=== PATIENT | male | born 1955 | race Caucasian/White ===

== ENCOUNTER 2020-10-02 16:39 | Inpatient (IN) | payer OTHER ==
[~2020-10-02] VITALS: Ht 177.8 cm; Wt 83.9 kg
[2020-10-02] MEDS ORDERED: NACL 0.9% 1,000 ML IV SCH (16:50)
[2020-10-02] MEDS ORDERED: cefTRIAXone 1,000 MG in DEXT 5% MINI-BAG PLUS 50 ML IV ONE (16:50)
[2020-10-02 16:52] VITALS: BP 86/64
[2020-10-02] MEDS ORDERED: cefTRIAXone 1,000 MG VIAL ONE (17:04)
[2020-10-02 17:29] LABS: BASOPHILS % (AUTO) 0.2 % (0.0-2.0); EOSINOPHILS # (AUTO) 0.1 K/uL (0-0.4); EOSINOPHILS % (AUTO) 0.5 % (0.0-4.0); HEMATOCRIT 28.6 % (36-52); HEMOGLOBIN 9.3 g/dL (12.0-18.0); LYMPHOCYTES # (AUTO) 1.9 K/uL (2.0-11.5); LYMPHOCYTES % (AUTO) 12.8 % (20.5-51.1); MEAN CORPUSCULAR HEMOGLOBIN 30 pg (27-31); MEAN CORPUSCULAR HGB CONC 32 g/dL (33-37); MEAN CORPUSCULAR VOLUME 92.9 fL (80-94); MONOCYTES # (AUTO) 2.8 K/uL (0.8-1.0); MONOCYTES % (AUTO) 19.2 % (1.7-9.3); NEUTROPHILS # (AUTO) 9.9 K/uL (1.8-7.7); NEUTROPHILS % (AUTO) 67.3 % (42.2-75.2); PLATELET COUNT (AUTO) 325 K/uL (140-450); RED BLOOD CELL COUNT(AUTO) 3.08 MIL/uL (4.20-6.10); RED CELL DISTRIBUTION WIDTH 17.2 % (11.6-13.7); WHITE BLOOD COUNT (AUTO) 14.7 K/uL (4.8-10.8)
[2020-10-02 17:45] LABS: ALBUMIN 2.4 g/dL (3.4-5.0); ANION GAP 10.8 (8-16); CREATININE 1.8 mg/dL (0.6-1.3); TOTAL BILIRUBIN 0.6 mg/dL (0.0-1.0)
[2020-10-02 17:49] LABS: POTASSIUM 2.8 mmol/L (3.5-5.1)
[2020-10-02] MEDS ORDERED: POTASSIUM CHLORIDE 10 MEQ TABER PO ONE (17:55)
[2020-10-02] MEDS ORDERED: POTA10TE30 PO (18:04)
[2020-10-02] MEDS ORDERED: CARV12.52 PO (18:04)
[2020-10-02] MEDS ORDERED: AMLO10TA89 PO (18:04)
[2020-10-02] MEDS ORDERED: LOSA100T1 PO (18:04)
[2020-10-02] MEDS ORDERED: ATOR40TA40 PO (18:04)
[2020-10-02] MEDS ORDERED: MORPHINE SULFATE 2 MG/ML SYR IVP PRN (18:15)
[2020-10-02] MEDS ORDERED: LORazepam 2 MG/ML VIAL IM/IVP PRN (18:15)
[2020-10-02] MEDS ORDERED: DOCUSATE SODIUM 100 MG GELCAP PO PRN (18:15)
[2020-10-02] MEDS ORDERED: ZOLPIDEM 5 MG TAB PO PRN (18:15)
[2020-10-02] MEDS ORDERED: ACETAMINOPHEN 325 MG TAB PO PRN (18:15)
[2020-10-02] MEDS ORDERED: HYDROcodone/APAP 5/325 MG 1 TAB TAB PO PRN (18:15)
[2020-10-02] MEDS ORDERED: ONDANSETRON 4 MG/2 ML VIAL IVP PRN (18:15)
[2020-10-02 18:53] LABS: CHOL/HDL RATIO 4.3 (1-4.5); FREE T4 (FREE THYROXINE) 1.3 ng/dL (0.76-1.46); MAGNESIUM 1.7 mg/dL (1.8-2.4); PHOSPHORUS 3.1 mg/dL (2.5-4.9); THYROID STIMULATING HORMONE 2.81 uIU/mL (0.34-3.74)
[2020-10-02] MEDS: NACL 0.9% 1,000 ML IV SCH (19:25)
[2020-10-02 20:00] VITALS: BP 108/85
[2020-10-02 20:25] LABS: ANION GAP 9.6 (8-16); CARBON DIOXIDE 29.1 mmol/L (21-32); CREATININE 1.4 mg/dL (0.6-1.3); POTASSIUM 3.7 mmol/L (3.5-5.1)
[2020-10-03] VITALS (8 sets, daily range): BP systolic 105–132; BP diastolic 63–90
[2020-10-03] MEDS ORDERED: PIPERACILLIN/TAZOBACTAM 3.375 GM VIAL IV ONE ×2 (01:15→06:41)
[2020-10-03] MEDS: PIPERACILLIN/TAZOBACTAM 3.375 GM in DEXTROSE 5% 50 ML IV SCH ×4 (01:26→17:06)
[2020-10-03 04:41] LABS: APPEARANCE,URINE CLEAR (CLEAR); BILIRUBIN,URINE NEGATIVE (NEGATIVE); BLOOD, URINE NEGATIVE (NEGATIVE); COLOR,URINE YELLOW (YELLOW); LEUKOCYTE ESTERASE ,URINE NEGATIVE (NEGATIVE); NITRITE, URINE NEGATIVE (NEGATIVE); UGLUCOSE NEGATIVE (NEGATIVE)
[2020-10-03 05:00] LABS: BARBITURATE, URINE NEGATIVE ng/ml (NEG <=200); BENZODIAZEPINE, URINE NEGATIVE ng/mL (NEG <=200); CANNABINOID, URINE NEGATIVE ng/mL (NEG <=50); COCAINE, URINE NEGATIVE ng/mL (NEG <=300); OPIATE, URINE NEGATIVE ng/mL (NEG <=2000); PHENCYCLIDINE SCREEN,URINE NEGATIVE ng/mL (NEG <=25)
[2020-10-03 05:00] LABS: BASOPHILS % (AUTO) 0.2 % (0.0-2.0); EOSINOPHILS # (AUTO) 0.1 K/uL (0-0.4); EOSINOPHILS % (AUTO) 0.7 % (0.0-4.0); HEMATOCRIT 26.6 % (36-52); HEMOGLOBIN 8.8 g/dL (12.0-18.0); LYMPHOCYTES # (AUTO) 1.8 K/uL (2.0-11.5); LYMPHOCYTES % (AUTO) 11.7 % (20.5-51.1); MEAN CORPUSCULAR HEMOGLOBIN 30 pg (27-31); MEAN CORPUSCULAR HGB CONC 33 g/dL (33-37); MEAN CORPUSCULAR VOLUME 91.7 fL (80-94); MONOCYTES # (AUTO) 1.9 K/uL (0.8-1.0); MONOCYTES % (AUTO) 12.6 % (1.7-9.3); NEUTROPHILS # (AUTO) 11.6 K/uL (1.8-7.7); NEUTROPHILS % (AUTO) 74.8 % (42.2-75.2); PLATELET COUNT (AUTO) 302 K/uL (140-450); RED BLOOD CELL COUNT(AUTO) 2.91 MIL/uL (4.20-6.10); RED CELL DISTRIBUTION WIDTH 17.4 % (11.6-13.7); WHITE BLOOD COUNT (AUTO) 15.4 K/uL (4.8-10.8)
[2020-10-03 05:13] LABS: MAGNESIUM 1.6 mg/dL (1.8-2.4); PHOSPHORUS 2.9 mg/dL (2.5-4.9)
[2020-10-03 06:13] LABS: ANION GAP 12.6 (8-16); CARBON DIOXIDE 25.9 mmol/L (21-32); CREATININE 1.4 mg/dL (0.6-1.3); POTASSIUM 3.5 mmol/L (3.5-5.1)
[2020-10-03] MEDS: NACL 0.9% 1,000 ML IV SCH ×3 (06:55→22:12)
[2020-10-03] MEDS ORDERED: MAG SULF 2000 MG/WATER PREMIX 50 ML IV SCH (08:30)
[2020-10-04] VITALS: BP 128/80
[2020-10-04] MEDS: PIPERACILLIN/TAZOBACTAM 3.375 GM in DEXTROSE 5% 50 ML IV SCH ×5 (00:03→23:23)
[2020-10-04 04:00] VITALS: BP 123/75
[2020-10-04 08:00] VITALS: BP 138/91
[2020-10-04] MEDS: NACL 0.9% 1,000 ML IV SCH ×2 (10:30→20:15)
[2020-10-04 10:51] LABS: BASOPHILS % (AUTO) 0.2 % (0.0-2.0); EOSINOPHILS # (AUTO) 0.1 K/uL (0-0.4); EOSINOPHILS % (AUTO) 0.3 % (0.0-4.0); HEMATOCRIT 27.2 % (36-52); LYMPHOCYTES # (AUTO) 1.5 K/uL (2.0-11.5); LYMPHOCYTES % (AUTO) 9.5 % (20.5-51.1); MEAN CORPUSCULAR HEMOGLOBIN 31 pg (27-31); MEAN CORPUSCULAR HGB CONC 33 g/dL (33-37); MEAN CORPUSCULAR VOLUME 92.9 fL (80-94); MONOCYTES % (AUTO) 12.1 % (1.7-9.3); NEUTROPHILS # (AUTO) 12.7 K/uL (1.8-7.7); NEUTROPHILS % (AUTO) 77.9 % (42.2-75.2); PLATELET COUNT (AUTO) 369 K/uL (140-450); RED BLOOD CELL COUNT(AUTO) 2.93 MIL/uL (4.20-6.10); RED CELL DISTRIBUTION WIDTH 17.5 % (11.6-13.7); WHITE BLOOD COUNT (AUTO) 16.3 K/uL (4.8-10.8)
[2020-10-04 11:06] LABS: ALBUMIN 2.2 g/dL (3.4-5.0); ANION GAP 11.2 (8-16); CARBON DIOXIDE 25.8 mmol/L (21-32); CREATININE 1.2 mg/dL (0.6-1.3); TOTAL BILIRUBIN 0.3 mg/dL (0.0-1.0)
[2020-10-04] MEDS ORDERED: POTASSIUM CHLORIDE 10 MEQ TABER PO SCH (11:35)
[2020-10-04 12:00] VITALS: BP 144/100
[2020-10-04 16:00] VITALS: BP 142/99
[2020-10-04 20:00] VITALS: BP 156/102
[2020-10-05] VITALS: BP 143/92
[2020-10-05 04:00] VITALS: BP 149/92
[2020-10-05] MEDS: PIPERACILLIN/TAZOBACTAM 3.375 GM in DEXTROSE 5% 50 ML IV SCH (05:00)
[2020-10-05 05:49] LABS: BASOPHILS # (AUTO) 0.1 K/uL (0.00-0.22); BASOPHILS % (AUTO) 0.8 % (0.0-2.0); EOSINOPHILS # (AUTO) 0.1 K/uL (0-0.4); HEMATOCRIT 27.4 % (36-52); HEMOGLOBIN 8.9 g/dL (12.0-18.0); LYMPHOCYTES # (AUTO) 1.7 K/uL (2.0-11.5); LYMPHOCYTES % (AUTO) 12.4 % (20.5-51.1); MEAN CORPUSCULAR HEMOGLOBIN 30 pg (27-31); MEAN CORPUSCULAR HGB CONC 33 g/dL (33-37); MEAN CORPUSCULAR VOLUME 91.9 fL (80-94); MONOCYTES # (AUTO) 1.2 K/uL (0.8-1.0); NEUTROPHILS # (AUTO) 10.3 K/uL (1.8-7.7); NEUTROPHILS % (AUTO) 76.8 % (42.2-75.2); PLATELET COUNT (AUTO) 374 K/uL (140-450); RED BLOOD CELL COUNT(AUTO) 2.98 MIL/uL (4.20-6.10); RED CELL DISTRIBUTION WIDTH 17.4 % (11.6-13.7); WHITE BLOOD COUNT (AUTO) 13.4 K/uL (4.8-10.8)
[2020-10-05 05:51] LABS: ANION GAP 12.7 (8-16); CARBON DIOXIDE 27.6 mmol/L (21-32); POTASSIUM 3.3 mmol/L (3.5-5.1)
[2020-10-05 06:03] LABS: MAGNESIUM 1.2 mg/dL (1.8-2.4); PHOSPHORUS 3.6 mg/dL (2.5-4.9)
[2020-10-05] MEDS: NACL 0.9% 1,000 ML IV SCH (06:15)
[2020-10-05 08:00] VITALS: BP 147/102
[2020-10-05] MEDS ORDERED: MAG SULF 2000 MG/WATER PREMIX 50 ML IV SCH (09:30)
[2020-10-05] MEDS ORDERED: MAGNESIUM OXIDE 400 MG TAB PO SCH (09:30)
[2020-10-05] MEDS ORDERED: POTASSIUM CHLORIDE 10 MEQ TABER PO SCH (09:30)
[2020-10-05] MEDS ORDERED: POTA10TE30 PO (10:08)
[2020-10-05] MEDS ORDERED: AMOX-999 PO (10:08)
[2020-10-05] MEDS ORDERED: MAGN241.1 PO (10:08)
== END 2020-10-05 11:10 | disposition home or self-care (01) | DRG 73 ==
LOC: MED 16:39 → MTU 18:19 → MMU 19:57
PROVIDERS: ADMIT Family Medicine; ATTEND Family Medicine
DX: G90.9 Disorder of the autonomic nervous system, unspecified (principal); N17.0 Acute kidney failure with tubular necrosis; E43 Unspecified severe protein-calorie malnutrition; K85.90 Acute pancreatitis without necrosis or infection, unspecified; E87.1 Hypo-osmolality and hyponatremia; K86.1 Other chronic pancreatitis; E78.5 Hyperlipidemia, unspecified; I10 Essential (primary) hypertension; Z56.0 Unemployment, unspecified; E87.6 Hypokalemia; E83.42 Hypomagnesemia; Z68.26 Body mass index [BMI] 26.0-26.9, adult; D63.8 Anemia in other chronic diseases classified elsewhere
CPT/HCPCS: 36415; 70450; 71045; 76770; 80048; 80053; 80305; 81003; 82140; 82150; 83036; 83605; 83690; 83735; 83880; 84100; 84439; 84443; 84484; 85025; 85610; 85730; 87040; 87081; 87086; 92610; 93005; 93880; 96365; 99285; J0696; J2543; J3475; J7060; U0003

== ENCOUNTER 2020-12-10 17:19 | Inpatient (IN) | payer OTHER ==
[~2020-12-10] VITALS: Ht 177.8 cm; Wt 77.1 kg
[2020-12-10] MEDS: NACL 0.9% 1,000 ML IV SCH (01:40)
[~2020-12-10 17:19] MED LIST: AMLO10TA89 PO; AMOX-999 PO; ATOR40TA40 PO; CARV12.52 PO; LOSA100T1 PO; MAGN241.1 PO; POTA10TE30 PO
--- NOTE | 2020-12-10 17:20 | NUR ---
ENOCH MORGAN VIA GURNEY TO BED 09.
[2020-12-10] MEDS ORDERED: ONDANSETRON 4 MG/2 ML VIAL IVP ONE (17:30)
[2020-12-10] MEDS ORDERED: NACL 0.9% 1,000 ML IV ONE (17:30)
[2020-12-10 17:37] VITALS: BP 77/53
--- NOTE | 2020-12-10 17:42 | NUR ---
65YO M BIBA DUE TO FALL A FEW MINS AGO. PD WITNESSED PATIENT WALKING ON THE STREET AND FALLING, NO LOC, NO HEAD TRAUMA. PT REPORTS 3 EPISODES OF VOMITING IN A DAY X 3 DAYS. DENIES ABDOMINAL PAIN, DENIES DIARRHEA. IN ED, PT HYPOTENSIVE @ 77/53 MMHG AND TACHY @ 108BPM. PT IS AFEBRILE. AOX4, GCS 15. CLEAR BREATH SOUNDS, NORMAL RATE REGULAR RHYTHM. WABDOMEN SOFT, NONTENDER, NORMOACTIVE BOWEL SOUNDS. PT CHANGED TO HOSPITAL GOWN. 2 SIDERAILS UP. ERMD MADE AWARE OF PT STATUS. PMH: HTN, HLD MEDS: UNRECALLED MEDS NKA
--- NOTE | 2020-12-10 17:46 | NUR ---
BS 170
--- NOTE | 2020-12-10 17:58 | NUR ---
PT GIVEN URINAL AT BEDSIDE.
[2020-12-10 18:32] LABS: BASOPHILS % (AUTO) 0.4 % (0.0-2.0); EOSINOPHILS % (AUTO) 0.4 % (0.0-4.0); HEMATOCRIT 32.6 % (36-52); HEMOGLOBIN 10.4 g/dL (12.0-18.0); LYMPHOCYTES # (AUTO) 1.5 K/uL (2.0-11.5); LYMPHOCYTES % (AUTO) 31.3 % (20.5-51.1); MEAN CORPUSCULAR HEMOGLOBIN 28 pg (27-31); MEAN CORPUSCULAR HGB CONC 32 g/dL (33-37); MEAN CORPUSCULAR VOLUME 86.7 fL (80-94); MONOCYTES # (AUTO) 0.6 K/uL (0.8-1.0); MONOCYTES % (AUTO) 13.5 % (1.7-9.3); NEUTROPHILS # (AUTO) 2.6 K/uL (1.8-7.7); NEUTROPHILS % (AUTO) 54.4 % (42.2-75.2); PLATELET COUNT (AUTO) 226 K/uL (140-450); RED BLOOD CELL COUNT(AUTO) 3.77 MIL/uL (4.20-6.10); RED CELL DISTRIBUTION WIDTH 18.8 % (11.6-13.7); WHITE BLOOD COUNT (AUTO) 4.8 K/uL (4.8-10.8)
--- NOTE | 2020-12-10 18:33 | NUR ---
UNABLE TO PRODUCE URINE AT THIS TIME. URINAL AT BEDSIDE.
[2020-12-10 19:05] LABS: LIPASE 187 U/L (73-393)
[2020-12-10 19:10] LABS: ALBUMIN 3.7 g/dL (3.4-5.0); ANION GAP 15.6 (8-16); CARBON DIOXIDE 27.1 mmol/L (21-32); CREATININE 2.2 mg/dL (0.6-1.3); TOTAL BILIRUBIN 0.4 mg/dL (0.0-1.0)
[2020-12-10 19:15] LABS: POTASSIUM 2.7 mmol/L (3.5-5.1)
--- NOTE | 2020-12-10 19:21 | NUR ---
RECEIVED REPORT FROM HOUSTON BRITT FOR CONTINUITY OF CARE
--- NOTE | 2020-12-10 19:21 | NUR ---
REPORT GIVEN TO HOUSTON LEAHY. ALL CARES TRANSFERRED AT THIS TIME.
--- NOTE | 2020-12-10 19:25 | NUR ---
Patient appears to be resting comfortably in bed- semi fowlers. Vital Signs within normal limits. Respirations even and unlabored. AAOx4. Iv on the left hand is flushable with 10ml of NS. Safety measures are in place, will continue to monitor patient.
[2020-12-10] MEDS ORDERED: POTASSIUM CHL 40 MEQ/ D5-1/2NS 1,000 ML IV ONE (19:30)
[2020-12-10] MEDS ORDERED: POTASSIUM CHLORIDE 10 MEQ TABER PO ONE (19:30)
[2020-12-10] MEDS ORDERED: MAG SULF 2000 MG/WATER PREMIX 50 ML IV ONE (19:35)
[2020-12-10 19:51] LABS: APPEARANCE,URINE CLEAR (CLEAR); BILIRUBIN,URINE NEGATIVE (NEGATIVE); BLOOD, URINE NEGATIVE (NEGATIVE); COLOR,URINE YELLOW (YELLOW); LEUKOCYTE ESTERASE ,URINE NEGATIVE (NEGATIVE); NITRITE, URINE NEGATIVE (NEGATIVE); PH,URINE 6.5 (5.0-9.0); UGLUCOSE NEGATIVE (NEGATIVE)
[2020-12-10] MEDS ORDERED: cefTRIAXone 1,000 MG VIAL ONE (19:53)
--- NOTE | 2020-12-10 20:21 | NUR ---
provided patient with medhat.
[2020-12-10] MEDS ORDERED: MAG SULF 2000 MG/WATER PREMIX 50 ML IV PRN (21:15)
[2020-12-10] MEDS ORDERED: ONDANSETRON 4 MG/2 ML VIAL IVP PRN (21:15)
[2020-12-10] MEDS ORDERED: LORazepam 2 MG/ML VIAL IM/IVP PRN (21:15)
[2020-12-10] MEDS ORDERED: ZOLPIDEM 5 MG TAB PO PRN (21:15)
[2020-12-10] MEDS ORDERED: POTASSIUM CHLORIDE 10 MEQ TABER PO PRN (21:15)
[2020-12-10] MEDS ORDERED: MORPHINE SULFATE 2 MG/ML SYR IVP PRN (21:15)
[2020-12-10] MEDS ORDERED: ACETAMINOPHEN 325 MG TAB PO PRN (21:15)
[2020-12-10] MEDS ORDERED: DOCUSATE SODIUM 100 MG GELCAP PO PRN (21:15)
[2020-12-10] MEDS ORDERED: SODIUM PHOS / POTASSIUM PHOS 1 PKT PDR PO PRN (21:15)
[2020-12-10] MEDS ORDERED: HYDROcodone/APAP 5/325 MG 1 TAB TAB PO PRN (21:15)
[2020-12-10 21:37] LABS: BARBITURATE, URINE NEGATIVE ng/ml (NEG <=200); BENZODIAZEPINE, URINE NEGATIVE ng/mL (NEG <=200); CANNABINOID, URINE NEGATIVE ng/mL (NEG <=50); COCAINE, URINE NEGATIVE ng/mL (NEG <=300); OPIATE, URINE NEGATIVE ng/mL (NEG <=2000); PHENCYCLIDINE SCREEN,URINE NEGATIVE ng/mL (NEG <=25)
[2020-12-10 21:48] LABS: CHOL/HDL RATIO 3.4 (1-4.5); FREE T4 (FREE THYROXINE) 1.05 ng/dL (0.76-1.46); PHOSPHORUS 2.5 mg/dL (2.5-4.9); THYROID STIMULATING HORMONE 2.46 uIU/mL (0.34-3.74)
[2020-12-10 21:58] LABS: PROTHROMBIN TIME 10.9 secs (10.8-13.4)
[2020-12-11 06:58] LABS: BASOPHILS % (AUTO) 0.5 % (0.0-2.0); EOSINOPHILS % (AUTO) 0.5 % (0.0-4.0); HEMATOCRIT 28.7 % (36-52); HEMOGLOBIN 9.2 g/dL (12.0-18.0); LYMPHOCYTES # (AUTO) 2.3 K/uL (2.0-11.5); LYMPHOCYTES % (AUTO) 32.1 % (20.5-51.1); MEAN CORPUSCULAR HEMOGLOBIN 28 pg (27-31); MEAN CORPUSCULAR HGB CONC 32 g/dL (33-37); MEAN CORPUSCULAR VOLUME 86.6 fL (80-94); MONOCYTES # (AUTO) 1.3 K/uL (0.8-1.0); NEUTROPHILS # (AUTO) 3.6 K/uL (1.8-7.7); NEUTROPHILS % (AUTO) 48.9 % (42.2-75.2); PLATELET COUNT (AUTO) 199 K/uL (140-450); RED BLOOD CELL COUNT(AUTO) 3.31 MIL/uL (4.20-6.10); RED CELL DISTRIBUTION WIDTH 18.2 % (11.6-13.7); WHITE BLOOD COUNT (AUTO) 7.2 K/uL (4.8-10.8)
[2020-12-11] MEDS: NACL 0.9% 1,000 ML IV SCH ×3 (07:15→22:47)
--- NOTE | 2020-12-11 07:25 | NUR ---
Pt report given to Aimee CONRAD. Transfer of care at this time.
--- NOTE | 2020-12-11 07:35 | NUR ---
REPORT RECEIVED FROM HOUSTON LEAHY. TRANSFER OF CARE RECEIVED
[2020-12-11 07:53] LABS: ALBUMIN 3.1 g/dL (3.4-5.0); ANION GAP 11.5 (8-16); CREATININE 1.5 mg/dL (0.6-1.3); MAGNESIUM 1.9 mg/dL (1.8-2.4); POTASSIUM 3.5 mmol/L (3.5-5.1); TOTAL BILIRUBIN 0.3 mg/dL (0.0-1.0)
[2020-12-11 08:00] VITALS: BP 139/106
--- NOTE | 2020-12-11 08:08 | NUR ---
Patient will be admitted to care of DR. ANDREW. Admited to TELE. Will go to room 106B. Belongings list completed. Report to HOUSTON MO.
--- NOTE | 2020-12-11 08:36 | NUR ---
PATIENT HAS BEEN SCREENED AND CATEGORIZED LOW NUTRITION RISK. PATIENT WILL BE SEEN WITHIN 7 DAYS OF ADMISSION. 12/17/[address]
--- NOTE | 2020-12-11 11:06 | NUR ---
SCHEDULED MEDICATIONS DUE GIVEN. WILL CONTINUE TO MONITOR.
--- NOTE | 2020-12-11 11:49 | NUR ---
RECEIVED FNS REFERRAL FOR VOMITING OVER 3 DAYS, PT WAS RE-SCREENED AND CATEGORIZED HIGH NUTRITIONAL RISK. WILL BE SEEN 1-2 DAYS OF ADMISSION. 12/11/20-12/12/[address]
[2020-12-11 12:00] VITALS: BP 133/98
[2020-12-11] MEDS: chlordiazePOXIDE 25 MG CAP PO SCH ×2 (13:20→17:04)
--- NOTE | 2020-12-11 13:21 | NUR ---
SCHEDULED MEDICATIONS DUE GIVEN. WILL CONTINUE TO MONITOR.
[2020-12-11 16:00] VITALS: BP 139/95
--- NOTE | 2020-12-11 17:04 | NUR ---
US ABD COMPLETED. SCHEDULED MEDICATIONS DUE GIVEN. WILL CONTINUE TO MONITOR.
--- NOTE | 2020-12-11 19:26 | NUR ---
GAVE REPORT TO REPEATER CHIEF NURSE FOR CONTINUITY OF CARE. PATIENT IN STABLE CONDITION.
--- NOTE | 2020-12-11 19:35 | NUR ---
RECEIVED REPORT AT BEDSIDE.PT IS AWAKE,ALERT AND ORIENTED.RESP.UNLABORED IN RA.IVF INFUSING WELL.TELE IS ON AND SHOWING SR.DEIES PT NOW.CALL LIGHT IN REACH.WILL CONT.MONITORING.
[2020-12-11 20:00] VITALS: BP 119/80
[2020-12-11] MEDS: LACTULOSE 20 GM/30 ML UDC PO SCH (21:07)
[2020-12-11] MEDS: carvediloL 12.5 MG TAB PO SCH (21:07)
[2020-12-12] VITALS: BP 135/93
--- NOTE | 2020-12-12 | NUR ---
SLEEPING.VS STABLE.HR IS SR.NO S/S OF ANY DISTRESS NOTED.
[2020-12-12 04:00] VITALS: BP 125/78
--- NOTE | 2020-12-12 04:00 | NUR ---
SLEEPING.NO DISTRESS NOTED.IVF IS IN PROGRESS.CALL LIGHT IN REACH.VS STABLE.HR IS SR.
--- NOTE | 2020-12-12 06:26 | NUR ---
SLEPT WELL.CONDITION STABLE.
--- NOTE | 2020-12-12 07:20 | NUR ---
REPORT RECEIVED FROM NIGHT NURSE PT IS SLEEPING IN THE BED, NO SOB NOTED. IV ACCESS IS 20 GAUGE NORMAL SALINE RUNNING AT 100 ML/HR. SKIN IS INTACT, CARDIAC DIET. PT IS STABLE AT THE MOMENT, PLAN OF CARE DISCUSSED WILL CONTINUE TO MONITOR.
[2020-12-12 07:45] LABS: BASOPHILS % (AUTO) 0.6 % (0.0-2.0); EOSINOPHILS # (AUTO) 0.1 K/uL (0-0.4); EOSINOPHILS % (AUTO) 1.6 % (0.0-4.0); HEMATOCRIT 29.2 % (36-52); HEMOGLOBIN 9.4 g/dL (12.0-18.0); LYMPHOCYTES % (AUTO) 37.4 % (20.5-51.1); MEAN CORPUSCULAR HEMOGLOBIN 28 pg (27-31); MEAN CORPUSCULAR HGB CONC 32 g/dL (33-37); MEAN CORPUSCULAR VOLUME 86.1 fL (80-94); MONOCYTES # (AUTO) 0.8 K/uL (0.8-1.0); MONOCYTES % (AUTO) 15.2 % (1.7-9.3); NEUTROPHILS # (AUTO) 2.4 K/uL (1.8-7.7); NEUTROPHILS % (AUTO) 45.2 % (42.2-75.2); PLATELET COUNT (AUTO) 205 K/uL (140-450); RED BLOOD CELL COUNT(AUTO) 3.39 MIL/uL (4.20-6.10); WHITE BLOOD COUNT (AUTO) 5.3 K/uL (4.8-10.8)
[2020-12-12 08:00] VITALS: BP 153/90
[2020-12-12 08:29] LABS: ANION GAP 11.2 (8-16); CARBON DIOXIDE 26.9 mmol/L (21-32); CREATININE 1.3 mg/dL (0.6-1.3); POTASSIUM 3.1 mmol/L (3.5-5.1); TOTAL BILIRUBIN 0.3 mg/dL (0.0-1.0)
[2020-12-12] MEDS: LACTULOSE 20 GM/30 ML UDC PO SCH (08:57)
[2020-12-12] MEDS: carvediloL 12.5 MG TAB PO SCH (08:57)
[2020-12-12] MEDS: chlordiazePOXIDE 25 MG CAP PO SCH ×3 (08:59→17:16)
[2020-12-12] MEDS ORDERED: LOSARTAN 50 MG TAB PO SCH (09:00)
[2020-12-12] MEDS ORDERED: POTASSIUM CHLORIDE 10 MEQ TABER PO SCH (09:00)
[2020-12-12] MEDS ORDERED: ATORVASTATIN 20 MG TAB PO SCH (09:00)
[2020-12-12] MEDS ORDERED: NON-FORMULARY ITEM (Atorvastatin Calcium 1 TAB) PO SCH (09:00)
[2020-12-12] MEDS ORDERED: NON-FORMULARY ITEM (Amlodipine Besylate (Amlodipine) 10 MG) PO SCH (09:00)
[2020-12-12] MEDS ORDERED: amLODIPine 5 MG TAB PO SCH (09:00)
--- NOTE | 2020-12-12 09:07 | NUR ---
ADMINISTERED ALL PRESCRIBED MEDICATIONS PER MD ORDER, ROCEPHIN RUNNING AT 100 ML/HR, PT TOLERATED ALL MEDICATIONS WELL. DENIES PAIN OR DISCOMFORT. NO SOB AT THE MOMENT. BP 153/90 RR18 HR 82.
--- NOTE | 2020-12-12 09:47 | NUR ---
RECEIVED LAB FOR POTASSIUM 3.1 INFORMED DOCTOR AT 09:47. AWAITING FOR FURTHER ORDERS.
--- NOTE | 2020-12-12 10:04 | NUR ---
PT'S POTASSIUM LEVEL IS 3.1 ADMINISTERED K DUR 40 MEQ PER MD ORDER. WILL CONTINUE TO MONITOR PT.
[2020-12-12] MEDS: NACL 0.9% 1,000 ML IV SCH (11:03)
--- NOTE | 2020-12-12 11:03 | NUR ---
CHANGED THE NORMAL SALINE 0.9% BAG, LAST BAG WAS EMPTY. RUNNING AT 100ML/HR.
[2020-12-12 11:10] LABS: MAGNESIUM 1.3 mg/dL (1.8-2.4)
[2020-12-12] MEDS ORDERED: POTA10TE30 PO (11:55)
[2020-12-12 12:00] VITALS: BP 129/98
--- NOTE | 2020-12-12 12:17 | NUR ---
ADMINISTERED LIBRIUM PER MD ORDER, PT IS STABLE, DENIES PAIN OR DISCOMFORT.
--- NOTE | 2020-12-12 15:34 | NUR ---
12/12/20 RD INITIAL ASSESSMENT COMPLETED PLEASE REFER TO NUTRITION ASSESSMENT UNDER CARE ACTIVITY FOR ESTIMATED NUTRITIONAL NEEDS. 1. CONTINUE CARDIAC DIET TOLERATED 2. RD TO FOLLOW-UP 3-5 DAYS, MODERATE RISK MARCIAL BALLESTER[address] RD
[2020-12-12 16:00] VITALS: BP 125/80
[2020-12-12 16:57] VITALS: BP 125/77
--- NOTE | 2020-12-12 17:35 | NUR ---
DISCHARGED PT HOME, PT IS STABLE, VITALS CHECKED BEFORE DISCHARGE, THEY WERE WITH IN NORMAL LIMITS, NO SOB OR DISTRESS NOTED. PT DENIES PAIN AND DISCOMFORT. DC BOTH IV ACCESSES AND BANDAGE APPLIED. DISCHARGE PAPERWORK GIVEN EDUCATED PT ABOUT S/S AND ENCOURAGE TO COME BACK TO ER IF CONDITION GET WORSE. ALL PT BELONGINGS WERE GIVEN AT THE TIME OF DISCHARGE. WALKED PT TO FRONT LOBBY IN STABLE CONDITION.
== END 2020-12-12 17:35 | disposition home or self-care (01) | DRG 682 ==
LOC: MED 17:19 → MTU 21:14
PROVIDERS: ADMIT Family Medicine; ATTEND Family Medicine
DX: N17.0 Acute kidney failure with tubular necrosis (principal); G92 Toxic encephalopathy; E44.1 Mild protein-calorie malnutrition; E83.42 Hypomagnesemia; D64.9 Anemia, unspecified; E87.6 Hypokalemia; I10 Essential (primary) hypertension; K59.09 Other constipation; E78.5 Hyperlipidemia, unspecified; J32.9 Chronic sinusitis, unspecified; D63.8 Anemia in other chronic diseases classified elsewhere; N28.1 Cyst of kidney, acquired; G31.2 Degeneration of nervous system due to alcohol; R55 Syncope and collapse; K70.10 Alcoholic hepatitis without ascites; Z86.73 Personal history of transient ischemic attack (TIA), and cerebral infarction without residual deficits; Z87.891 Personal history of nicotine dependence; Z79.899 Other long term (current) drug therapy; Z71.41 Alcohol abuse counseling and surveillance of alcoholic; Z68.24 Body mass index [BMI] 24.0-24.9, adult
CPT/HCPCS: 36415; 70450; 71045; 76700; 80053; 80305; 81003; 82140; 82150; 83036; 83605; 83690; 83735; 83880; 84100; 84439; 84443; 84484; 85025; 85610; 85730; 87040; 87081; 87086; 93005; 96365; 96366; 96367; 96375; 99291; G0482; J0696; J2405; J3475; J7060; Q0092

== ENCOUNTER 2020-12-30 15:49 | Emergency (ER) | payer OTHER ==
[~2020-12-30] VITALS: Ht 177.8 cm; Wt 75.7 kg
[2020-12-30 15:49] VITALS: BP 98/69
[~2020-12-30 15:49] MED LIST changes: -AMOX-999 PO
--- NOTE | 2020-12-30 15:49 | NUR ---
BIBA TO ER BED 6
--- NOTE | 2020-12-30 15:55 | NUR ---
65 Y/O MALE BIBA WITH C/O NEAR SYNCOPAL EPISODE. PT STATES HE FELT FAINT THEN ASISSTED HIMSELF TO THE FLOOR. PT DENIES ACTUAL SYNCOPAL EPISODE, DENIES HITTING HEAD. [place] [facility] [place] TOXIC METABOLIC ENCEPHALOPATHY. PT STATES THIS HAS HAPPENED BEFORE AND HE FAINTED. PT DENIES ETOH/DRUG USE. PT A/O X4 WITH EVEN AND UNLABORED RESPIRATIONS. PT IN GOWN, ATTACHED TO TONGUE PRESSER, BOTH SIDERAILS UP. PMH:HTN, HDL SX:HALF OF THYROID REMOVED NKDA
--- NOTE | 2020-12-30 16:00 | NUR ---
DR FROST AT BEDSIDE EVALUATING PT
[2020-12-30] MEDS ORDERED: NACL 0.9% 1,000 ML IV ONE (16:05)
--- NOTE | 2020-12-30 16:30 | NUR ---
Pt taken to radiology via w/c.
--- NOTE | 2020-12-30 16:32 | NUR ---
PT TAKEN TO CT VIA WHEELCHAIR
[2020-12-30 16:45] LABS: BASOPHILS # (AUTO) 0.1 K/uL (0.00-0.22); BASOPHILS % (AUTO) 1.7 % (0.0-2.0); EOSINOPHILS # (AUTO) 0.2 K/uL (0-0.4); EOSINOPHILS % (AUTO) 3.3 % (0.0-4.0); HEMATOCRIT 23.6 % (36-52); HEMOGLOBIN 7.7 g/dL (12.0-18.0); LYMPHOCYTES # (AUTO) 1.5 K/uL (2.0-11.5); LYMPHOCYTES % (AUTO) 26.6 % (20.5-51.1); MEAN CORPUSCULAR HEMOGLOBIN 27 pg (27-31); MEAN CORPUSCULAR HGB CONC 32 g/dL (33-37); MEAN CORPUSCULAR VOLUME 83.8 fL (80-94); MONOCYTES # (AUTO) 0.6 K/uL (0.8-1.0); MONOCYTES % (AUTO) 10.9 % (1.7-9.3); NEUTROPHILS # (AUTO) 3.2 K/uL (1.8-7.7); NEUTROPHILS % (AUTO) 57.5 % (42.2-75.2); PLATELET COUNT (AUTO) 183 K/uL (140-450); RED BLOOD CELL COUNT(AUTO) 2.82 MIL/uL (4.20-6.10); RED CELL DISTRIBUTION WIDTH 18.5 % (11.6-13.7); WHITE BLOOD COUNT (AUTO) 5.5 K/uL (4.8-10.8)
--- NOTE | 2020-12-30 16:45 | NUR ---
PT BACK FROM CT AND CONNECTED TO MONITOR
[2020-12-30 16:53] LABS: ALBUMIN 2.8 g/dL (3.4-5.0); ANION GAP 14.4 (8-16); CREATININE 1.6 mg/dL (0.6-1.3); POTASSIUM 3.4 mmol/L (3.5-5.1); TOTAL BILIRUBIN 0.2 mg/dL (0.0-1.0)
[2020-12-30] MEDS ORDERED: PANTOPRAZOLE 40 MG INJ VIAL IVP SCH (17:40)
[2020-12-30] MEDS ORDERED: PANT40EC PO (17:41)
[2020-12-30 18:07] VITALS: BP 120/83
--- NOTE | 2020-12-30 18:15 | NUR ---
Patient does not wish to proceed with medical care recommended by MARGOT. Patient given information related to possible complications, up to and including , which could occur as a result of leaving hospital at this time. Patient verbalizes understanding of risks involved leaving against medical advice. Patient has signed AMA form.
== END 2020-12-30 18:15 | disposition left against medical advice (07) ==
LOC: MED 15:49
DX: K92.2 Gastrointestinal hemorrhage, unspecified (principal); R55 Syncope and collapse; I10 Essential (primary) hypertension
CPT/HCPCS: 36415; 70450; 71045; 80053; 84484; 85025; 93005; 96361; 96374; 99283; C9113; J7030; Q0092; 81025

== ENCOUNTER 2021-02-18 23:10 | Inpatient (IN) | payer OTHER ==
[~2021-02-18] VITALS: Ht 185.4 cm; Wt 88.5 kg
[~2021-02-18 23:10] MED LIST changes: +PANT40EC PO; +POTA10TA70 PO; -POTA10TE30 PO
--- NOTE | 2021-02-18 23:21 | NUR ---
PT EDDIE ALS. TAKEN TO BED 7
[2021-02-18 23:23] VITALS: BP 104/71
--- NOTE | 2021-02-18 23:30 | NUR ---
PATIENT PRESENTS TO ED WITH +ORTHOSTATIC BP. PT STATES "IM NOT SURE BUT I BLACKED OUT." DENIES N/V/D. SKIN IS NORMAL FOR ETHNICITY/WARM/DRY. AAOX4 WITH EVEN AND STEADY GAIT; LUNGS CLEAR BTA. HR EVEN AND REGULAR; PT DENIES ANY FEVER, CP, SOB, OR COUGH AT THIS TIME. PATIENT STATES PAIN OF 0/10 AT THIS TIME; VS WITHIN DEFINED LIMITS x BP LOW 73/50, ATTEMPTS TO SIT PT UP FAILED, PT BEGINS TO PASS OUT; PATIENT POSITIONED FOR COMFORT; HOB AT APPROXIMATELY 30 DEGREESE; BEDRAILS UP X2; BED IN LOW POSITION. ER MD AWARE OF PT STATUS.
[2021-02-19] MEDS ORDERED: LIDOCAINE MPF 1% 10 MG/ML VIAL INJ ONE (01:05)
--- NOTE | 2021-02-19 01:09 | NUR ---
Dr. Catalan examining patient.
[2021-02-19] MEDS ORDERED: ONDANSETRON 4 MG/2 ML VIAL IVP ONE (01:30)
[2021-02-19] MEDS ORDERED: NACL 0.9% 1,000 ML IV ONE ×2 (01:30→04:25)
--- NOTE | 2021-02-19 01:40 | NUR ---
PT WITH POSITIVE ORTHO BP LAYING 120/88, SITTING 119/89 AND STANDING 76/59. ERMD AWARE.
[2021-02-19 01:50] LABS: BASOPHILS % (AUTO) 0.3 % (0.0-2.0); HEMOGLOBIN 9.2 g/dL (12.0-18.0); LYMPHOCYTES # (AUTO) 2.1 K/uL (2.0-11.5); LYMPHOCYTES % (AUTO) 21.2 % (20.5-51.1); MEAN CORPUSCULAR HEMOGLOBIN 24 pg (27-31); MEAN CORPUSCULAR HGB CONC 32 g/dL (33-37); MEAN CORPUSCULAR VOLUME 76.9 fL (80-94); MONOCYTES # (AUTO) 1.3 K/uL (0.8-1.0); MONOCYTES % (AUTO) 13.6 % (1.7-9.3); NEUTROPHILS # (AUTO) 6.3 K/uL (1.8-7.7); NEUTROPHILS % (AUTO) 64.9 % (42.2-75.2); PLATELET COUNT (AUTO) 189 K/uL (140-450); RED BLOOD CELL COUNT(AUTO) 3.78 MIL/uL (4.20-6.10); RED CELL DISTRIBUTION WIDTH 20.9 % (11.6-13.7); WHITE BLOOD COUNT (AUTO) 9.8 K/uL (4.8-10.8)
[2021-02-19 02:17] LABS: ALBUMIN 3.1 g/dL (3.4-5.0); ANION GAP 12.7 (8-16); CARBON DIOXIDE 28.6 mmol/L (21-32); CREATININE 1.5 mg/dL (0.6-1.3); POTASSIUM 3.3 mmol/L (3.5-5.1); THYROID STIMULATING HORMONE 1.9 uIU/mL (0.34-3.74); TOTAL BILIRUBIN 0.7 mg/dL (0.0-1.0)
--- NOTE | 2021-02-19 02:40 | NUR ---
PT STILL UNABLE TO URINATE. VS WITHIN DEFINED LIMITS. PT APPEARS MORE ALERT.
--- NOTE | 2021-02-19 04:30 | NUR ---
NO CHANGES NOTED IN PT STATUS CONTINUES IN DEPT. RRE/U. VS WITHIN DEFINED LIMITS x ORTHOSTATIC NOT ATTEMTED AGAIN.
--- NOTE | 2021-02-19 05:20 | NUR ---
PT DOES NOT WANT A STRAIGT CATH. PROVIDED WATER FOR PT TO DRINK.
--- NOTE | 2021-02-19 05:40 | NUR ---
PT ATTEMPTING TO USE URINAL BUT HAVING DIFFICULT TIME PRODUCING URINE.
--- NOTE | 2021-02-19 07:10 | NUR ---
REPORT TO RITIKA. PT ATTEMPTING TO URINATE BUT DOES NOT WANT STRAIGHT CATH. ENDORSING TO ONCOMING NURSE. NAD NOTED
--- NOTE | 2021-02-19 07:15 | NUR ---
REPORT RECEIVED FROM HOUSTON WILLETT
[2021-02-19] MEDS: NACL 0.9% 1,000 ML IV SCH ×2 (08:16→21:18)
[2021-02-19 08:19] LABS: BARBITURATE, URINE NEGATIVE ng/ml (NEG <=200); BENZODIAZEPINE, URINE POSITIVE ng/mL (NEG <=200); CANNABINOID, URINE POSITIVE ng/mL (NEG <=50); COCAINE, URINE NEGATIVE ng/mL (NEG <=300); OPIATE, URINE NEGATIVE ng/mL (NEG <=2000); PHENCYCLIDINE SCREEN,URINE NEGATIVE ng/mL (NEG <=25)
--- NOTE | 2021-02-19 08:30 | NUR ---
A&OX4. DOES NOT ENDORSE ANY DIZZINESS, LEE, OR WEAKNESS. ASSISTED PATIENT TO BEDSIDE COMMODE. PATIENT WAS ABLE TO HAVE BM AND RETURNED TO BED. TOLERATED STANDING WELL WITH NO EPISODES OF SYNCOPE. ABLE TO MAINTAIN SBP ABOVE 90. DENIES ANY PAIN OR DISCOMFORTS AT THIS TIME. PLACED ON MONITOR. VS WNL WITH EVEN AND UNLABORED BREATHING. WILL CONTINUE TO MONITOR. AWAITING FOR INPATIENT BED.
[2021-02-19] MEDS ORDERED: MECLIZINE 25 MG TAB PO PRN (11:35)
[2021-02-19] MEDS ORDERED: ONDANSETRON 4 MG/2 ML VIAL IM/IVP PRN (11:35)
[2021-02-19] MEDS ORDERED: DOCUSATE SODIUM 100 MG GELCAP PO PRN (11:35)
[2021-02-19] MEDS ORDERED: ACETAMINOPHEN 325 MG TAB PO PRN (11:35)
[2021-02-19] MEDS ORDERED: HYDROcodone/APAP 5/325 MG 1 TAB TAB PO PRN (11:35)
[2021-02-19] MEDS ORDERED: ZOLPIDEM 5 MG TAB PO PRN (11:35)
[2021-02-19 12:21] LABS: PROTHROMBIN TIME 11.3 secs (10.8-13.4)
[2021-02-19 13:07] LABS: MAGNESIUM 1.7 mg/dL (1.8-2.4); PHOSPHORUS 2.7 mg/dL (2.5-4.9)
--- NOTE | 2021-02-19 16:08 | NUR ---
PATIENT HAS BEEN SCREENED AND CATEGORIZED LOW NUTRITION RISK. PATIENT WILL BE SEEN WITHIN 7 DAYS OF ADMISSION. 02/25/[address]
[2021-02-19 16:24] LABS: APPEARANCE,URINE CLEAR (CLEAR); BILIRUBIN,URINE 2+ (NEGATIVE); BLOOD, URINE NEGATIVE (NEGATIVE); COLOR,URINE YELLOW (YELLOW); LEUKOCYTE ESTERASE ,URINE NEGATIVE (NEGATIVE); NITRITE, URINE NEGATIVE (NEGATIVE); UGLUCOSE NEGATIVE (NEGATIVE)
--- NOTE | 2021-02-19 19:10 | NUR ---
REPORT GIVEN TO HOUSTON CERRATO
--- NOTE | 2021-02-19 19:13 | NUR ---
RECEIVED REPORT FROM RITIKA CONRAD.
--- NOTE | 2021-02-19 19:52 | NUR ---
Patient appears to be resting comfortably in bed. Vital Signs within normal limits. Respirations even and unlabored. BOTH RAILS DONE, BED SET AT LOWEST POSITION.
--- NOTE | 2021-02-19 20:51 | NUR ---
GAVE REPORT TO JV CONRAD TO FOR TELE HOLD.
--- NOTE | 2021-02-19 21:04 | NUR ---
Patient will be admitted to care of DR. GRANGER. Admited to TELE. Will go to room. Belongings list completed. Report to .
--- NOTE | 2021-02-19 21:07 | NUR ---
PATIENT WAS BROUGHT TO TELE UNIT FROM ER. AAOX4. NO SOB NOTED. RESPIRATION EVEN UNLABORED. SKIN WARM AND DRY TO THE TOUCH. ALL SAFETY PRECAUTIONS ARE IN PLACE. ORIENTED TO ROOM, CALL LIGHT AND STAFF. CALL LIGHT WITHIN REACH. MRSA SCREENING DONE. SKIN IS INTACT. WILL CONTINUE TO MONITOR.
[2021-02-20] VITALS: BP 116/76
[2021-02-20 04:00] VITALS: BP 118/86
[2021-02-20 06:38] LABS: CHOL/HDL RATIO 3.2 (1-4.5)
--- NOTE | 2021-02-20 07:15 | NUR ---
RECEIVE REPORT FROM ANIMAL LABORATORY HELPER NURSE FOR CONTINUITY OF CARE. PATIENT SLEEPING. BREATHING EVEN AND UNLABORED. NO ACUTE DISTRESS NOTED. PATIENT ON ROOM AIR. CALL LIGHT WITHIN REACH. ALL SAFETY MEASURES IN PLACE. WILL CONTINUE TO MONITOR.
[2021-02-20 08:00] VITALS: BP 126/88
[2021-02-20] MEDS ORDERED: DOCUSATE SODIUM 100 MG GELCAP PO PRN (09:25)
[2021-02-20] MEDS ORDERED: ACETAMINOPHEN 325 MG TAB PO PRN (09:25)
[2021-02-20] MEDS ORDERED: HYDROcodone/APAP 5/325 MG 1 TAB TAB PO PRN (09:25)
[2021-02-20] MEDS ORDERED: LORazepam 2 MG/ML VIAL IM/IVP PRN (09:25)
[2021-02-20] MEDS ORDERED: ONDANSETRON 4 MG/2 ML VIAL IM/IVP PRN (09:25)
[2021-02-20] MEDS ORDERED: MORPHINE SULFATE 2 MG/ML SYR IVP PRN (09:25)
[2021-02-20] MEDS ORDERED: ZOLPIDEM 5 MG TAB PO PRN (09:25)
[2021-02-20] MEDS: NACL 0.9% 1,000 ML IV SCH (09:25)
--- NOTE | 2021-02-20 09:37 | NUR ---
PATIENT AWAKE AND ALERT. NO ACUTE DISTRESS NOTED. NO SCHEDULED MEDICATION GIVEN. PATIENT ON ROOM AIR. CALL LIGHT WITHIN REACH. ALL SAFETY MEASURES IN PLACE. WILL CONTINUE TO MONITOR.
[2021-02-20] MEDS ORDERED: LACTULOSE 20 GM/30 ML UDC PO SCH (09:50)
--- NOTE | 2021-02-20 10:08 | NUR ---
PATIENT AWAKE AND ALERT. NO ACUTE DISTRESS NOTED. SCHEDULED MEDICATION GIVEN. PATIENT ON ROOM AIR. PATIENT COMPLAINING OF WHY HE NEEDS TO MUCH BLOOD DRAWN AND WHY HE NEEDS TO TAKE MEDICATION. EDUCATED PATIENT. PATIENT VERBALIZE UNDERSTANDING BUT IS NOT HAPPY ABOUT HAVING TO COMPLY. CALL LIGHT WITHIN REACH. ALL SAFETY MEASURES IN PLACE. WILL CONTINUE TO MONITOR.
[2021-02-20 10:17] LABS: BASOPHILS % (AUTO) 0.5 % (0.0-2.0); EOSINOPHILS # (AUTO) 0.1 K/uL (0-0.4); EOSINOPHILS % (AUTO) 1.1 % (0.0-4.0); HEMATOCRIT 26.5 % (36-52); HEMOGLOBIN 8.6 g/dL (12.0-18.0); LYMPHOCYTES # (AUTO) 1.4 K/uL (2.0-11.5); LYMPHOCYTES % (AUTO) 24.7 % (20.5-51.1); MEAN CORPUSCULAR HEMOGLOBIN 25 pg (27-31); MEAN CORPUSCULAR HGB CONC 33 g/dL (33-37); MEAN CORPUSCULAR VOLUME 76.8 fL (80-94); MONOCYTES # (AUTO) 0.9 K/uL (0.8-1.0); MONOCYTES % (AUTO) 15.4 % (1.7-9.3); NEUTROPHILS # (AUTO) 3.3 K/uL (1.8-7.7); NEUTROPHILS % (AUTO) 58.3 % (42.2-75.2); PLATELET COUNT (AUTO) 145 K/uL (140-450); RED BLOOD CELL COUNT(AUTO) 3.45 MIL/uL (4.20-6.10); RED CELL DISTRIBUTION WIDTH 20.4 % (11.6-13.7); WHITE BLOOD COUNT (AUTO) 5.7 K/uL (4.8-10.8)
[2021-02-20 10:28] LABS: ANION GAP 9.5 (8-16); CARBON DIOXIDE 29.6 mmol/L (21-32); CREATININE 1.2 mg/dL (0.6-1.3); POTASSIUM 3.1 mmol/L (3.5-5.1)
[2021-02-20 10:33] LABS: PROTHROMBIN TIME 10.8 secs (10.8-13.4)
[2021-02-20 10:42] LABS: CHOL/HDL RATIO 3.1 (1-4.5); THYROID STIMULATING HORMONE 1.4 uIU/mL (0.34-3.74)
--- NOTE | 2021-02-20 11:47 | NUR ---
PATIENT AWAKE AND ALERT. NO ACUTE DISTRESS NOTED. PATIENT ON ROOM AIR. CASE MANAGEMENT WORKER AT BEDSIDE. CALL LIGHT WITHIN REACH. ALL SAFETY MEASURES IN PLACE. WILL CONTINUE TO MONITOR.
[2021-02-20 12:00] VITALS: BP 126/97
--- NOTE | 2021-02-20 12:34 | NUR ---
DC PLANNING: THE PATIENT ADMITTED THROUGH THE ER S/P SYNCOPAL EPISODE WITH LOSS OF CONSCIOUSNESS. THE PATIENT HAS A H/O HTN AND ENCEPHALOPATHY SECONDARY TO ETOH ABUSE. THE PATIENT WAS HYPOTENSIVE AND BOLUSED WITH NS WITH IMPROVEMENT IN B/P. CM SPOKE WITH THE PATIENT AT BEDSIDE AND CONFIRMED HIS ADDRESS AND CONTACT INFORMATION PER HIS FACE SHEET. HE LIVES IN A SECOND STORY APARTMENT WITH A FRIEND AND IS INDEPENDENT IN ALL ACTIVITIES. NO H/O DME USE OR HOME HEALTH, AND [facility]1400[facility]MONTH. [facility] AND HAS A COLONOSCOPY SCHEDULED WITH THEM ON Feb. THE PATIENT STATES THAT HE'S BEEN TOLD BY THE ATTENDING MD THAT HE HAS TO STOP DRINKING, AND HAS BEEN [facility]AKING WITH [facility] ABOUT [facility]. HE STATES THAT THEY ARE UNABLE TO PLACE HIM AT THIS TIME, CM AND PATIENT DISCUSSED OPTION OF AA MEETINGS. THE PATIENT STATES THAT HE IS MOTIVATED TO STOP ETOH ABUSE BECAUSE OF HIS MULTIPLE SYNCOPAL EPISODES AND THAT HE WILL BE WORKING WITH [facility] ON ALTERNATE HOUSING OPTIONS. DC PLAN IS FOR THE PATIENT TO DC TO HOME, CM WILL FOLLOW FOR NEEDS.
--- NOTE | 2021-02-20 13:31 | NUR ---
PATIENT AWAKE AND ALERT. NO ACUTE DISTRESS NOTED. PATIENT ON ROOM AIR. AT BEDSIDE. PATIENT DENIES PAIN AT THIS TIME. CALL LIGHT WITHIN REACH. ALL SAFETY MEASURES IN PLACE. WILL CONTINUE TO MONITOR.
[2021-02-20] MEDS: MAG SULF 2000 MG/WATER PREMIX 50 ML IV PRN (14:46)
[2021-02-20] MEDS: POTASSIUM CHLORIDE 10 MEQ TABER PO PRN (15:38)
[2021-02-20 16:00] VITALS: BP 133/88
--- NOTE | 2021-02-20 17:19 | NUR ---
PATIENT WATCHING TV. PATIENT AWAKE AND ALERT. NO ACUTE DISTRESS NOTED. PATIENT DENIES PAIN AT THIS TIME. CALL LIGHT WITHIN REACH. ALL SAFETY MEASURES IN PLACE. WILL CONTINUE TO MONITOR.
--- NOTE | 2021-02-20 19:15 | NUR ---
ENDORSE TO ETL INFORMATICA DEVELOPER NURSE JV FOR CONTINUITY OF PATIENT CARE. PATIENT STABLE.
--- NOTE | 2021-02-20 19:15 | NUR ---
RECEIVED BEDSIDE ENDORSEMENT FROM AM NURSE. PATIENT IS AWAKE, ALERT AND ORIENTED RESTING COMFORTABLY. NO SOB NOTED. BREATHING EVEN UNLABORED. IVF NS INFUSING AT 60 ML ON THE LAC. NO COMPLAINTS OF PAIN. ALL SAFETY MEASURES ARE IN PLACE. CALL LIGHT WITHIN REACH. WILL CONTINUE TO MONITOR.
[2021-02-20 20:00] VITALS: BP 141/96
--- NOTE | 2021-02-20 20:35 | NUR ---
PATIENT REFUSED HEPARIN .
--- NOTE | 2021-02-20 20:54 | NUR ---
PATIENT CHANGED HIS MIND AND I ADMINISTERED HEPARIN ORDERED.
[2021-02-21] VITALS: BP 146/92
--- NOTE | 2021-02-21 01:28 | NUR ---
ROUNDED PATIENT, PT IS ASLEEP. NO S/S OF DISTRESS. CALL LIGHT WITHIN REACH.
[2021-02-21] MEDS: NACL 0.9% 1,000 ML IV SCH (02:05)
--- NOTE | 2021-02-21 02:31 | NUR ---
LATE ENTRY--- 0.9% NS IVF DISCONTINUED AT 2100 AND 0.9% NS BOLUS DISCONTINUED AT 0230
[2021-02-21 04:00] VITALS: BP 137/88
[2021-02-21 06:02] LABS: BASOPHILS % (AUTO) 0.6 % (0.0-2.0); EOSINOPHILS # (AUTO) 0.1 K/uL (0-0.4); EOSINOPHILS % (AUTO) 1.9 % (0.0-4.0); HEMATOCRIT 23.4 % (36-52); HEMOGLOBIN 7.5 g/dL (12.0-18.0); LYMPHOCYTES # (AUTO) 1.9 K/uL (2.0-11.5); MEAN CORPUSCULAR HEMOGLOBIN 25 pg (27-31); MEAN CORPUSCULAR HGB CONC 32 g/dL (33-37); MEAN CORPUSCULAR VOLUME 77.1 fL (80-94); MONOCYTES # (AUTO) 1.1 K/uL (0.8-1.0); MONOCYTES % (AUTO) 19.7 % (1.7-9.3); NEUTROPHILS # (AUTO) 2.5 K/uL (1.8-7.7); NEUTROPHILS % (AUTO) 43.8 % (42.2-75.2); PLATELET COUNT (AUTO) 139 K/uL (140-450); RED BLOOD CELL COUNT(AUTO) 3.04 MIL/uL (4.20-6.10); RED CELL DISTRIBUTION WIDTH 20.5 % (11.6-13.7); WHITE BLOOD COUNT (AUTO) 5.7 K/uL (4.8-10.8)
[2021-02-21 06:13] LABS: ANION GAP 13.6 (8-16); CARBON DIOXIDE 24.4 mmol/L (21-32); CREATININE 1.1 mg/dL (0.6-1.3)
[2021-02-21 06:21] LABS: MAGNESIUM 1.7 mg/dL (1.8-2.4); PHOSPHORUS 2.9 mg/dL (2.5-4.9)
--- NOTE | 2021-02-21 07:20 | NUR ---
RECEIVE REPORT FROM WOODWORKER NURSE FOR CONTINUITY OF PATIENT CARE. PATIENT SLEEPING. BREATHING EVEN AND UNLABORED. NO ACUTE DISTRESS NOTED. PATIENT ON ROOM AIR. CALL LIGHT WITHIN REACH. ALL SAFETY MEASURES IN PLACE. WILL CONTINUE TO MONITOR.
--- NOTE | 2021-02-21 07:25 | NUR ---
ENDORSED TO AM NURSE FOR CONTINUITY OF CARE. PATIENT IS IN STABLE CONDITION.
[2021-02-21 08:00] VITALS: BP 150/89
[2021-02-21] MEDS: POTASSIUM CHLORIDE 10 MEQ TABER PO PRN (08:50)
[2021-02-21] MEDS: MAG SULF 2000 MG/WATER PREMIX 50 ML IV PRN (08:51)
[2021-02-21] MEDS ORDERED: THIAMINE 100 MG TAB PO SCH (09:00)
[2021-02-21] MEDS ORDERED: MULTIVITAMIN 1 TAB PO SCH (09:00)
[2021-02-21] MEDS ORDERED: LACTULOSE 20 GM/30 ML UDC PO SCH (09:00)
[2021-02-21] MEDS ORDERED: FOLIC ACID 1 MG TAB PO SCH (09:00)
--- NOTE | 2021-02-21 09:14 | NUR ---
PATIENT AWAKE AND ALERT. NO ACUTE DISTRESS NOTED. PATIENT ON ROOM AIR. SCHEDULED MEDICATION GIVEN. PATIENT MARVIN PAIN AT THIS TIME. CALL LIGHT WITHIN REACH. ALL SAFETY MEASURES IN PLACE. WILL CONTINUE TO MONITOR.
--- NOTE | 2021-02-21 11:05 | NUR ---
PATIENT AWAKE AND ALERT. NO ACUTE DISTRESS NOTED. PATIENT ON ROOM AIR. PATIENT MARVIN PAIN AT THIS TIME. CALL LIGHT WITHIN REACH. ALL SAFETY MEASURES IN PLACE. WILL CONTINUE TO MONITOR.
[2021-02-21 12:00] VITALS: BP 155/91
--- NOTE | 2021-02-21 13:15 | NUR ---
PATIENT SLEEPING. BREATHING EVEN AND UNLABORED. NO ACUTE DISTRESS NOTED. PATIENT ON ROOM AIR. PATIENT MARVIN PAIN AT THIS TIME. CALL LIGHT WITHIN REACH. ALL SAFETY MEASURES IN PLACE. WILL CONTINUE TO MONITOR
[2021-02-21] MEDS ORDERED: MULT-405 PO (13:22)
[2021-02-21] MEDS ORDERED: DOCU-299 PO (13:22)
[2021-02-21] MEDS ORDERED: FER325 PO (13:22)
[2021-02-21] MEDS ORDERED: LACT10SO11 PO (13:22)
[2021-02-21] MEDS ORDERED: THIA-34 PO (13:22)
[2021-02-21] MEDS ORDERED: FOLI1TAB90 PO (13:22)
[2021-02-21] MEDS ORDERED: amLODIPine 5 MG TAB PO SCH (13:30)
--- NOTE | 2021-02-21 14:25 | NUR ---
PATIENT AWAKE AND ALERT. NO ACUTE DISTRESS NOTED. PATIENT DISCHARGE INFORMATION GIVEN. PATIENT VERBALIZE UNDERSTANDING. PATIENT WRISTBAND AND IV REMOVED. IV CATHETER INTACT. PATIENT TOOK ALL PERSONAL BELONGING. PATIENT REFUSE WHEELCHAIR. PATIENT WALKED TO FRONT LOBBY.
[2021-02-21] MEDS ORDERED: FERROUS SULFATE 325 MG TABEC PO SCH (17:00)
[2021-02-22 09:06] LABS: FERRITIN 34 ng/mL (30-400); TRANSFERRIN 178 mg/dL (177-329)
[2021-02-22 10:06] LABS: FOLIC ACID > 20.00 ng/mL (>3.0)
== END 2021-02-21 14:58 | disposition home or self-care (01) | DRG 73 ==
LOC: MED 23:10 → MTU 02-19 04:23 → MED 02-19 04:23 → MTU 02-19 19:17
DX: G90.8 Other disorders of autonomic nervous system (principal); G92.8 Other toxic encephalopathy; N17.0 Acute kidney failure with tubular necrosis; K86.1 Other chronic pancreatitis; E44.0 Moderate protein-calorie malnutrition; F10.129 Alcohol abuse with intoxication, unspecified; I95.1 Orthostatic hypotension; D64.9 Anemia, unspecified; K72.90 Hepatic failure, unspecified without coma; E86.0 Dehydration; F12.90 Cannabis use, unspecified, uncomplicated; E11.9 Type 2 diabetes mellitus without complications; K82.8 Other specified diseases of gallbladder; K75.9 Inflammatory liver disease, unspecified; E87.6 Hypokalemia; E83.42 Hypomagnesemia; E78.5 Hyperlipidemia, unspecified; I10 Essential (primary) hypertension; Z79.899 Other long term (current) drug therapy; Z81.1 Family history of alcohol abuse and dependence; Z80.0 Family history of malignant neoplasm of digestive organs; Z81.2 Family history of tobacco abuse and dependence; Z71.41 Alcohol abuse counseling and surveillance of alcoholic; Z68.25 Body mass index [BMI] 25.0-25.9, adult
CPT/HCPCS: 36415; 70450; 76705; 80048; 80053; 80305; 81003; 82140; 82150; 82607; 82728; 82746; 83036; 83540; 83690; 83735; 83880; 84100; 84134; 84436; 84443; 84484; 85025; 85045; 85610; 85730; 87081; 93005; 93880; 96361; 96374; 97163-GP; 99285; G0482; J1644; J2405; J3475; Q0092